=== PATIENT | female | born 1945 | race Caucasian/White ===

== ENCOUNTER 2016-07-22 10:56 | Emergency (ER) | payer MEDICARE ==
[~2016-07-22] VITALS: Ht 162.6 cm; Wt 48.5 kg
[~2016-07-22 10:56] MED LIST: CLON0.1T14 PO; CLON0.3T4 PO; DILT300C PO; HCT25T PO; LEVO750T6 PO; PHEN200T27 PO; POTA10CA43 PO; POTA20TA15 PO; TRAM-21 PO
--- OUTSIDE RECORDS SUMMARY | 2016-07-22 11:05 | XMS REPORT | Continuity of Care Document ---
Author Author [facility] Organization [facility] Address Unknown Phone Unavailable Care Team Providers Care Ed Case Manager Name Role Phone FLETCHER WATTS MD PCP Insurance Providers Payer Name Policy Number Subscriber Name Relationship [facility] [id number] Francisco Sosa 18 Self / Same As Patient Advance Directives Directive Response Recorded Date/Time Advance Directives No 10/11/14 10:10am Health Care Power of Shuffle Board Operator No 10/11/14 10:10am Organ Donor No 10/11/14 10:10am Problems No known problems or medical conditions. Medications Medication Dose Route Sig Days/Qty Instructions Order Date Discontinued Date Status Diltiazem HCl (Cardizem Cd) 1 Each PO DAILY 12/08/09 Active Potassium Chloride (Micro K) 1 Each PO DAILY WITH FOOD 12/08/09 Discontinued Hydrochlorothiazide 25 Mg PO DAILY 12/08/09 Active Clonidine HCl 0.1 Mg PO DAILY 12/08/09 10/09/14 Discontinued Phenazopyridine HCl 1 Each PO TID PRN 10 Qty 03/18/13 08/18/14 Discontinued Levofloxacin 1 Each PO DAILY 7 Qty 03/18/13 10/09/14 Discontinued Potassium Chloride 1 Each PO DAILY 10/09/14 Active Clonidine HCl 0.1 Mg PO DAILY 10/09/14 Active Tramadol Hcl 50 Mg PO EVERY 12 HOURS 20 Qty 10/11/14 Active Social History Social History Problem Response Recorded Date/Time Alcohol Use Denies Use 10/11/2014 10:10am Recreational Drug Use No 10/11/2014 10:10am Recent Foreign Travel No 08/17/2014 10:20am Sexually Transmitted Disease No 10/11/2014 10:10am HIV/AIDS No 10/11/2014 10:10am Smoking Status Current Everyday Smoker 08/17/2014 10:47am Do you dip or chew tobacco? No 10/11/2014 10:10am Query Response Start Date Stop Date Smoking Status Current Everyday Smoker Hospital Discharge Instructions No hospital discharge instructions. Plan of Care No plan of care. Functional Status No functional status results. Allergies, Adverse Reactions, Alerts Allergen Type Severity Reaction Status Last Updated No Known Drug Allergies Active 12/08/09 Immunizations No immunization records. Vital Signs Acute Vital Signs Vital Response Date/Time Height 5 ft 4 in Weight 114 lb Body Mass Index 19.6 kg/m^2 Results No known relevant diagnostic tests, laboratory data and/or discharge summary. Procedures No known history of procedures. Encounters Encounter Location Date/Time Registered Recurring Via [facility] 08/18/14 8:40am
[2016-07-22] MEDS ORDERED: morphine INJ 10 MG/ML 1ML (SYR OR VIAL) ONE (11:45)
--- NOTE | 2016-07-22 11:56 | ED Fall/Injury ---
General Chief Complaint: Upper Extremity Stated Complaint: LEFT ARM INJ Nursing Triage Note: PT AMBULATEDE TO ROOM 4. PT CO OF FALL AND L WRIST PAIN, PT HAS ABRASION TO L EYE LID, DENIES LOC. STATES SLID OFF WOOD CHAIR THAT HAD WAXED. DENIES HIP PAIN AT THIS X. ICE PACK APPLIED Source: patient Exam Limitations: no limitations (ROSA HERNANDEZ MD) History of Present Illness Time seen by provider: 11:43 Initial Comments Here with report of pain to the left wrist and left eyebrow. Patient slipped on a waxed chair in floor and hit the floor. Does have deformity to the left wrist as well as abrasion to the left brow. Denies loss of consciousness. Denies other injury. Occurred: this morning Severity: moderate Injuries/Pain Location: face, upper extremity Context: slipped Loss of Consciousness: no loss of consciousness Modifying Factors: Improves With Immobilization, Worse With Movement Associated Symptoms (Fall): No Chest Pain, No Confusion, No Nausea/Vomiting, No Shortness of Air (ROSA HERNANDEZ MD) Allergies and Home Medications Allergies Coded Allergies: No Known Drug Allergies (Unverified , 12/08/09) Home Medications Clonidine HCl 0.1 Mg Tablet 0.1 MG PO DAILY (Reported) Diltiazem Hcl 300 Mg Cap.sr.24h 1 EACH PO DAILY (Reported) Hydrochlorothiazide 25 Mg Tablet 25 MG PO DAILY (Reported) Hydrocodone/Acetaminophen 1 Each Tablet #12 1 EACH PO Q4H PRN PRN PAIN Prescribed by: GINNA JOHNSON on 07/22/16 1311 Potassium Chloride 20 Meq Tab.prt.sr 1 EACH PO DAILY (Reported) Constitutional: see HPINo chills, No fever Eyes: No Symptoms Reported Ears, Nose, Mouth, Throat: no symptoms reported Respiratory: No short of breath, No wheezing Cardiovascular: no symptoms reportedNo chest pain, No palpitations, No syncope Gastrointestinal: No abdominal pain, No nausea, No vomiting Genitourinary: no symptoms reported Musculoskeletal: see HPI joint pain joint swelling muscle pain Skin: change in color lesions Psychiatric/Neurological: No Symptoms Reported (ROSA HERNANDEZ MD) All Other Systems Reviewed Negative Unless Noted: Yes (ROSA HERNANDEZ MD) Past Eddcode-Ujbmxi-Qxlkyx Hx Patient Social History Alcohol Use: Denies Use Recreational Drug Use: No Smoking Status: Current Everyday Smoker Type Used: Cigarettes Recent Foreign Travel: No Contact w/Someone Who Travel: No Recent Infectious Disease Expo: No Recent Hopitalizations: No (ROSA HERNANDEZ MD) Surgeries HX Surgeries: Yes (CARPAL TUNNEL) Surgeries: Gallbladder, Hysterectomy, Orthopedic (ROSA HERNANDEZ MD) Respiratory Hx Respiratory Disorders: No (ROSA HERNANDEZ MD) Cardiovascular Hx Cardiac Disorders: Yes Cardiac Disorders: Hypertension (ROSA HERNANDEZ MD) Neurological Hx Neurological Disorders: No (ROSA HERNANDEZ MD) Reproductive System Hx Reproductive Disorders: No Sexually Transmitted Disease: No HIV/AIDS: No Female Reproductive Disorders: Denies REMEDY DEVELOPER History: Hysterectomy (ROSA HERNANDEZ MD) Genitourinary Hx Genitourinary Disorders: Yes Genitourinary Disorders: UTI-Chronic (ROSA HERNANDEZ MD) Gastrointestinal Hx Gastrointestinal Disorders: Yes Gastrointestinal Disorders: Chronic Constipation, Gall Bladder Disease (ROSA HERNANDEZ MD) Musculoskeletal Hx Musculoskeletal Disorders: Yes Musculoskeletal Disorders: Back Injury (ROSA HERNANDEZ MD) Endocrine Hx Endocrine Disorders: No (ROSA HERNANDEZ MD) HEENT HX ENT Disorders: Yes (GLASSES) (ROSA HERNANDEZ MD) Cancer Hx Cancer: No (ROSA HERNANDEZ MD) Psychosocial Hx Psychiatric Problems: No (ROSA HERNANDEZ MD) Integumentary HX Skin/Integumentary Disorder: No (ROSA HERNANDEZ MD) Blood Transfusions Hx Blood Disorders: No Adverse Reaction to a Blood Tr: No (ROSA HERNANDEZ MD) Reviewed Nursing Assessment Reviewed/Agree w Nursing PMH: Yes (ROSA HERNANDEZ MD) Reviewed/Agree w Nursing PMH: Yes (GINNA JOHNSON) Family Medical History Significant Family History: No Pertinent Family Hx (ROSA HERNANDEZ MD) Physical Exam Vital Signs Vital Sign - Last 12Hours 07/22/16 11:15 Temp 97.9 Pulse 90 Resp 18 B/P 202/101 Pulse Ox 98 (GINNA JOHNSON) Vital Signs Capillary Refill : Less Than 3 Seconds (ROSA HERNANDEZ MD) General Appearance: WD/WN no apparent distress HEENT: PERRL/EOMI pharynx normal Neck: full range of motion supple Cardiovascular: regular rate, rhythm no murmur Respiratory: lungs clear normal breath sounds Gastrointestinal: non tender soft Back: normal inspection no CVA tenderness no vertebral tenderness Extremities: other (deformity to the left wrist area with tenderness and swelling. Distal sensation and movement is intact.) Neurologic/Psychiatric: alert oriented x 3 Skin: normal color warm/dry (ROSA HERNANDEZ MD) Extremities: normal range of motion (except left wrist and hand) normal capillary refill other (deformity to the left wrist area with tenderness and swelling. Distal sensation and movement is intact.) Neurologic/Psychiatric: no motor/sensory deficits normal mood/affect (GINNA JOHNSON) Lagrange Coma Score Best Eye Response: (4) Open Spontaneously Best Verbal Response: (5) Oriented Best Motor Response: (6) Obeys Commands (ROSA HERNANDEZ MD) Best Eye Response: (4) Open Spontaneously Best Verbal Response: (5) Oriented Best Motor Response: (6) Obeys Commands Ad Total: 15 (GINNA JOHNSON) Splinting and Joint Reduction : Location: Left Wrist Pre-Proc Neuro Vasc Exam: normal Post-Proc Neuro Vasc Exam: normal Progress Patient tolerated short arm volar splint applied to left upper extremity. No complaints throughout procedure. Pre-Procedure NV Exam: Yes Selvin wrap: Yes Arm Sling: [place] Hand-Made Type: orthoglass Splint Application: Short Arm (GINNA JOHNSON) Progress/Results/Core Measures Results/Orders Medications Given in ED Current Medications Medications Dose Ordered Sig/Kishor Route Start Time Stop Time Status Last Admin Dose Admin Morphine Sulfate 5 mg ONCE ONCE IM 07/22/16 12:00 07/22/16 12:01 DC 07/22/16 11:40 5 MG (GINNA JOHNSON) Vital Signs/I&O Vital Sign - Last 12Hours 07/22/16 07/22/16 11:15 13:29 Temp 97.9 Pulse 90 94 Resp 18 18 B/P 202/101 Pulse Ox 98 96 (GINNA JOHNSON) Blood Pressure Mean: 134 Progress Note : Progress Note Seen and evaluated. Seen with Ginna Johnson APRN. Left wrist x-ray ordered and CT head ordered. Morphine 5 mg IM ordered. Monitor patient. (ROSA HERNANDEZ MD) Progress Note : Time: 11:45 Progress Note Initial evaluation completed, will reevaluate after diagnostic studies are completed. 1220 CT head and neck negative. Left wrist films show impacted minimally displaced distal radius fracture nondisplaced ulnar styloid fracture. 1255 discussed x-ray findings with Dr. Caldwell, he recommended splinting and he will see the patient at 9 AM tomorrow. 1315 splint applied to left wrist. Patient tolerated well and discharge plans made (GINNA JOHNSON) Diagnostic Imaging Diagonstic Imaging: CT Plain Films/CT/US/NM/MRI: c-spine, head Comments VIA [facility] [place] [place], [place] NAME: FRANCISCO SOSA [facility] REC#: [id number] PT STATUS: REG ER : 1945 PHYSICIAN: ROSA HERNANDEZ MD ADMIT DATE: 07/22/16/ER Draft Date of Exam:07/22/16 CT HEAD/CERVICAL SPINE WO PROCEDURE: CT head and CT cervical spine without contrast. TECHNIQUE: Multiple contiguous axial images were obtained through the brain and cervical spine without the use of intravenous contrast. Sagittal and coronal reformations through the cervical spine were then performed. INDICATION: Fall. FINDINGS: CT head: There is no intracranial hemorrhage, edema or mass effect. The brain parenchyma demonstrates periventricular and deep white hypodensities compatible with chronic microvascular ischemic changes. 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 No hydrocephalus. No extra-axial fluid collection is seen. The calvarium, the paranasal sinuses and orbits visualized portions appear grossly unremarkable. CT cervical spine: The alignment at the posterior spinal line is satisfactory. The vertebral body heights are preserved. There is mild disc height loss at C6-7 level and posterior osteophytes at this level. There is satisfactory alignment at the facet joints and at the lateral masses of C1 and C2 and atlantooccipital joints. There is no widening of the predental space. No fracture seen. The lung apices demonstrate partially seen consolidation or possibly pleural pulmonary fibrotic changes. IMPRESSION: 1. CT head: No intracranial hemorrhage. 2. CT cervical spine: Degenerative changes. No fracture seen. Dictated on workstation # [id number] Dict: 07/22/16 1204 Trans: 07/22/16 1217 KB [id number] Interpreted by: FRANCHESKA BARRIOS MD Electronically signed by: Diagonstic Imaging: Xray Plain Films/CT/US/NM/MRI: other (wrist) Comments VIA [facility] [place] [place] [place] NAME: FRANCISCO SOSA [facility] REC#: [id number] PT STATUS: REG ER : 1945 PHYSICIAN: ROSA HERNANDEZ MD ADMIT DATE: 07/22/16/ER Draft Date of Exam:07/22/16 WRIST, LEFT, 3 VIEWS OR MORE Three views of the left wrist. INDICATION: Fall. FINDINGS: There is an impacted angulated fracture of the distal radius with no definite extension into the articular surface. The distal fragment is angulated to a dorsal direction. There is also an oblique fracture along the base of the ulnar styloid process. There is no subluxation or dislocation at the wrist joint. Digital changes at the intercarpal joints particularly the scaphoid-trapezium joint seen. No radiopaque foreign body. IMPRESSION: Angulated impacted fracture of the distal radius. There is nondisplaced fracture of the ulnar styloid as well. Message about the fracture findings were left with the senior front end engineer for Dr. Hernandez. Dictated on workstation # [id number] Dict: 07/22/16 1213 Trans: 07/22/16 1224 KB [id number] Interpreted by: FRANCHESKA BARRIOS MD Electronically signed by: (ROSA HERNANDEZ MD) Diagonstic Imaging: Xray, CT Plain Films/CT/US/NM/MRI: c-spine, head, other (writst) (GINNA JOHNSON) Departure Impression Impression: Primary Impression: Fracture of wrist, closed Qualified Code: S62.101A - Fracture of unspecified carpal bone, right wrist, initial encounter for closed fracture Disposition: 01 HOME, SELF-CARE Condition: Stable Departure-Patient Inst. Decision time for Depature: 12:40 (GINNA JOHNSON) Referrals: FLETCHER WATTS MD (PCP/Family) Primary Care Physician Patient Instructions: Wrist Fracture (DC) Add. Discharge Instructions: All discharge instructions reviewed with patient and/or family. Voiced understanding. Follow up at 9:00 Ortho 4 , Dr. Paulette Medrano [phone] Keep splint on at all times, Ice and elevate wrist every 2 hours. Wiggle fingers , frequently. Sling as needed. Return to Emergency Dept for new problems or concerns. Scripts Hydrocodone/Acetaminophen (Hydrocodon -Acetaminophen 5-325)1 Each Tablet1 Each PO Q4H PRN PAIN #12 TAB Ref 0 Prov:GINNA JOHNSON 07/22/16 Copy Copies To 1: FLETCHER WATTS MD Copies To 2: CHELA CALDWELL MD, TIMOTHY D MD Jul 22, 2016 11:56 GINNA JOHNSON Jul 22, 2016 12:40
[2016-07-22] MEDS ORDERED: morphine INJ 5 MG/ML 1 ML VIAL IM ONE (12:00)
[2016-07-22] MEDS ORDERED: TETANUS,DIPTH,PERTUSS P/F (BOOSTRIX) 0.5 ML VIAL IM STA (12:04)
--- NOTE | 2016-07-22 12:18 | Diagnostic Imaging Report ---
PROCEDURE: CT head and CT cervical spine without contrast. TECHNIQUE: Multiple contiguous axial images were obtained through the brain and cervical spine without the use of intravenous contrast. Sagittal and coronal reformations through the cervical spine were then performed. INDICATION: Fall. FINDINGS: CT head: There is no intracranial hemorrhage, edema or mass effect. The brain parenchyma demonstrates periventricular and deep white hypodensities compatible with chronic microvascular ischemic changes. 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 No hydrocephalus. No extra-axial fluid collection is seen. The calvarium, the paranasal sinuses and orbits visualized portions appear grossly unremarkable. CT cervical spine: The alignment at the posterior spinal line is satisfactory. The vertebral body heights are preserved. There is mild disc height loss at C6-7 level and posterior osteophytes at this level. There is satisfactory alignment at the facet joints and at the lateral masses of C1 and C2 and atlantooccipital joints. There is no widening of the predental space. No fracture seen. The lung apices demonstrate partially seen consolidation or possibly pleural pulmonary fibrotic changes. IMPRESSION: 1. CT head: No intracranial hemorrhage. 2. CT cervical spine: Degenerative changes. No fracture seen. Dictated by: Dictated on workstation # [id number]
--- NOTE | 2016-07-22 12:24 | Diagnostic Imaging Report ---
Three views of the left wrist. INDICATION: Fall. FINDINGS: There is an impacted angulated fracture of the distal radius with no definite extension into the articular surface. The distal fragment is angulated to a dorsal direction. There is also an oblique fracture along the base of the ulnar styloid process. There is no subluxation or dislocation at the wrist joint. Digital changes at the intercarpal joints particularly the scaphoid-trapezium joint seen. No radiopaque foreign body. IMPRESSION: Angulated impacted fracture of the distal radius. There is nondisplaced fracture of the ulnar styloid as well. Message about the fracture findings were left with the front end developer designer for Dr. Ernst. Dictated by: Dictated on workstation # [id number]
[2016-07-22] MEDS ORDERED: HYDR-3812 PO (13:11)
[2016-07-22 13:29] VITALS: BP 176/91
[2016-07-26] MEDS ORDERED: HYDR-3812 PO (08:03)
== END 2016-07-22 13:29 | disposition home or self-care (01) ==
LOC: EDUNIT# 10:56 → ER 11:00
DX: S52.502A Unspecified fracture of the lower end of left radius, initial encounter for closed fracture (principal); S52.615A Nondisplaced fracture of left ulna styloid process, initial encounter for closed fracture; S00.212A Abrasion of left eyelid and periocular area, initial encounter; M47.812 Spondylosis without myelopathy or radiculopathy, cervical region; F17.210 Nicotine dependence, cigarettes, uncomplicated; Z79.899 Other long term (current) drug therapy; W07.XXXA Fall from chair, initial encounter; Y99.8 Other external cause status
CPT/HCPCS: 29125; 70450; 72125; 73110; 90471; 90715; 96372

== ENCOUNTER 2016-07-23 12:12 | Outpatient (CLI) | payer MEDICARE ==
[~2016-07-23] VITALS: Ht 162.6 cm; Wt 48.5 kg
[~2016-07-23 12:12] MED LIST changes: +HYDR-3812 PO
--- OUTSIDE RECORDS SUMMARY | 2016-07-23 12:16 | XMS REPORT | Continuity of Care Document ---
Author Author [facility] Organization [facility] Address Unknown Phone Unavailable Care Team Providers Care Dietitian Assistant Name Role Phone FLETCHER WATTS MD PCP Insurance Providers Payer Name Policy Number Subscriber Name Relationship [facility] [id number] Francisco Sosa 18 Self / Same As Patient Advance Directives Directive Response Recorded Date/Time Advance Directives No 10/11/14 10:10am Health Care Power of Customer Contact Representative No 10/11/14 10:10am Organ Donor No 10/11/14 [...] Encounters Encounter Location Date/Time Registered Recurring [facility] 08/18/14 8:40am
[2016-07-26] MEDS ORDERED: HYDR-3812 PO (08:03)
== END 2016-07-23 13:37 ==
LOC: PREOP 12:12
PROVIDERS: ATTEND Orthopaedic Surgery Orthopaedic Surgery of the Spine
DX: Z01.818 Encounter for other preprocedural examination (principal); S52.502A Unspecified fracture of the lower end of left radius, initial encounter for closed fracture; S52.615A Nondisplaced fracture of left ulna styloid process, initial encounter for closed fracture; W07.XXXA Fall from chair, initial encounter; Y99.8 Other external cause status

== ENCOUNTER 2016-07-26 05:51 | Day surgery (SDC) | payer MEDICARE ==
[~2016-07-26] VITALS: Ht 162.6 cm; Wt 48.5 kg
--- OUTSIDE RECORDS SUMMARY | 2016-07-26 05:54 | XMS REPORT | Continuity of Care Document ---
Author Author [facility] Organization [facility] [address] [facility] Address Unknown Phone Unavailable Care Team Providers Care Supervisor Refining Name Role Phone FLETCHER WATTS MD PCP Insurance Providers Payer Name Policy Number Subscriber Name Relationship [employer] [id number] Sheila,Francisco F 18 Self / Same As Patient Blue Cross [facility] Supp [id number] Francisco Astorga F 17 Self / Same As Patient Advance Directives Directive Response Recorded Date/Time Advance Directives No 07/23/16 1:26pm Health Care Power of Wood Machinist Apprentice No 07/23/16 1:26pm Organ Donor No 07/23/16 1:26pm Resuscitation Status Full Code 07/23/16 1:26pm Problems Active Problems Medical Problem Onset Date Status Fracture of wrist, closed Unknown Acute Medications Current Home Medications Medication Dose Units Route Directions Days/Qty Instructions Start Date Diltiazem Hcl (Cardizem Cd) 300 Mg 1 Each Oral Daily 12/08/09 Hydrochlorothiazide 25 Mg 25 Mg Oral Daily 12/08/09 Potassium Chloride 20 Meq 1 Each Oral Daily 10/09/14 Clonidine Hcl 0.1 Mg 0.1 Mg Oral Daily 10/09/14 Hydrocodone/Acetaminophen 1 Each 1 Each Oral Every 4HRS as needed for Pain 12 07/22/16 Past Home Medications Medication Directions Ordered Status Potassium Chloride (Micro K) 10 Meq Capsule.sa, 1 Each Oral Daily With Food 12/08/09 Discontinued Clonidine Hcl 0.3 Mg Tablet, 0.1 Mg Oral Daily 12/08/09 Discontinued Phenazopyridine Hcl 200 Mg Tablet, 1 Each Oral Three Times A Day And Prn 11/23 Discontinued Levofloxacin 750 Mg Tablet, 1 Each Oral Daily 03/18/13 Discontinued Tramadol Hcl 50 Mg Tablet, 50 Mg Oral Every 12 Hours 10/11/14 Discontinued Social History Social History Problem Response Recorded Date/Time Alcohol Use Denies Use 10/11/2014 10:10am Recreational Drug Use No 10/11/2014 10:10am Recent Foreign Travel No 07/23/2016 1:26pm Recent Infectious Disease Exposure No 07/23/2016 1:26pm Sexually Transmitted Disease No 07/23/2016 1:26pm HIV/AIDS No 07/23/2016 1:26pm Smoking Status Current Everyday Smoker 07/23/2016 1:26pm Do you dip or chew tobacco? No 10/11/2014 10:10am Type Used Cigarettes 07/23/2016 1:26pm Recent Hopitalizations No 07/23/2016 1:26pm Sexually Transmitted Disease No 07/23/2016 1:26pm Hx Sexually Transmitted Disorders No 12/11/2009 6:05am Query Response Start Date Stop Date Smoking Status Current Everyday Smoker Hospital Discharge Instructions No hospital discharge instructions. Plan of Care Discharge Date 07/23/16 1:37pm Prescriptions See Medication Section Functional Status No functional status results. Allergies, Adverse Reactions, Alerts No known allergies. Immunizations Name Given Type DTaP-Tetanus, Dipth, Pertuss P/F (Boostrix) 07/22/16 Administered Vital Signs Acute Vital Signs Vital Response Date/Time Temperature (Fahrenheit) 97.9 degrees F (97.6 - 99.5) 07/22/2016 11:15am Temperature (Calculated Celsius) 36.85799 degrees C (36.4 - 37.5) 07/22/2016 11:15am Pulse Rate (adult) 94 bpm (60 - 90) 07/22/2016 1:29pm Respiratory Rate 18 bpm (12 - 24) 07/22/2016 1:29pm O2 Sat by Pulse Oximetry 96 % (88 - 100) 07/22/2016 1:29pm Blood Pressure 176/91 mm Hg 07/22/2016 1:29pm Blood Pressure Mean 134 mm Hg 07/22/2016 11:15am Pain Numeric Pain Scale 10-Worst Possible Pain 07/22/2016 11:40am Height (Feet) 5 feet 07/23/2016 1:25pm Height (Inches) 4.00 inches 07/23/2016 1:25pm Height (Calculated Centimeters) 162.767990 cm 07/23/2016 1:25pm Weight (Pounds) 107 pounds 07/23/2016 1:25pm Weight (Ounces) 0.0 oz 07/23/2016 1:25pm Weight (Calculated Grams) 68167.38 gm 07/23/2016 1:25pm Weight (Calculated Kilograms) 48.339028 kilograms 07/23/2016 1:25pm Calculated BMI 18.4 07/23/2016 1:25pm Capillary Refill Capillary Refill Less Than 3 Seconds 07/22/2016 11:15am Results No known relevant diagnostic tests, laboratory data and/or discharge summary. Procedures No known history of procedures. Encounters Encounter Location Arrival/Admit Date Discharge/Depart Date Attending Provider Departed Clinic [facility] 07/23/16 12:12pm 07/23/16 1: 37pm CHELA GAXIOLA MD Departed Emergency Room [facility] [address] 07/22/16 11:00am 02/27 1:29pm GINNA JOHNSON
--- OUTSIDE RECORDS SUMMARY | 2016-07-26 05:55 | XMS REPORT | Continuity of Care Document ---
Author Author [facility] Organization [facility] Address Unknown Phone Unavailable Care Team Providers Care Time Study Analyst Name Role Phone FLETCHER WATTS MD PCP Insurance Providers Payer Name Policy Number Subscriber Name Relationship [employer] [id number] Sheila,Francisco F 17 Self / Same As Patient Blue Cross [facility] Supp [id number] Francisco Astorga F 17 Self / Same As Patient Advance Directives Directive Response Recorded Date/Time Advance Directives No 07/23/16 1:26pm Health Care Power of Soaping Machine Back Tender No 07/23/16 1:26pm Organ Donor No 07/23/16 [...] - 99.5) 07/22/2016 11:15am Temperature (Calculated Celsius) 36.01578 degrees C (36.4 - 37.5) 07/22/2016 11:15am [...] 4.00 inches 07/23/2016 1:25pm Height (Calculated Centimeters) 162.603013 cm 07/23/2016 1:25pm Weight (Pounds) 107 pounds 07/23/2016 1:25pm Weight (Ounces) 0.0 oz 07/23/2016 1:25pm Weight (Calculated Grams) 99449.38 gm 07/23/2016 1:25pm Weight (Calculated Kilograms) 48.282559 kilograms 07/23/2016 1:25pm Calculated BMI 18.4 07/23/2016 1:25pm Capillary Refill Capillary Refill Less Than 3 Seconds 07/22/2016 11:15am Results No known relevant diagnostic tests, laboratory data and/or discharge summary. Procedures No known history of procedures. Encounters Encounter Location Arrival/Admit Date Discharge/Depart Date Attending Provider Departed Clinic [facility] 07/23/16 12:12pm 07/23/16 1: 37pm CHELA GAXIOLA MD Departed Emergency Room [facility] 07/22/16 11:00am 02/27 1:29pm GINNA JOHNSON
[2016-07-26 06:20] VITALS: BP 135/67
[2016-07-26] MEDS ORDERED: ceFAZolin 2 GM/50 ML NS 50 ML IV ONE (06:27)
[2016-07-26] MEDS: LACTATED RINGERS 1,000 ML IV PRN ×2 (06:44→07:40)
[2016-07-26] MEDS ORDERED: fentaNYL INJECTION 100 MCG/2 ML AMP ONE (06:46)
[2016-07-26] MEDS ORDERED: ONDANSETRON 4 MG/2 ML (SDV) Z0FRAN ONE (06:48)
[2016-07-26] MEDS ORDERED: DEXAMETHASONE PF 10 MG/ML (DECADRON) VIAL ONE (06:48)
[2016-07-26] MEDS ORDERED: LIDOCAINE PF 2% 10 ML (XYLOCAINE) AMP ONE (06:48)
[2016-07-26] MEDS ORDERED: proPOfol 200 MG/20 ML (DIPRIVAN) VIAL IV ONE (06:48)
[2016-07-26] MEDS ORDERED: SEVOFLURANE (ULTANE) 15 ML INHAL SOLN ONE ×5 (06:48→08:14)
[2016-07-26] MEDS ORDERED: BUP/EPI 0.25% 1:200,000 (MARCAINE) 30 ML VIAL ONE (06:50)
[2016-07-26] MEDS ORDERED: ceFAZolin 2 GM/NS 50 ML IV ONE (07:15)
[2016-07-26] MEDS ORDERED: LACTATED RINGERS 1,000 ML IV ONE (07:55)
--- NOTE | 2016-07-26 08:00 | Progress Note-Post Operative ---
Post-Operative Progess Note Shipping Room Supervisor Khanh Emmanuel, VITA Pre-Operative Diagnosis FRACTURED LEFT RADIUS Post-Operative Diagnosis Closed, Distal Radius Fracture Post-Op Procedure Note Date of Procedure: Jul 26, 2016 Name of Procedure: ORIF Left Distal Radius Procedure Note/Findings Fracture Anesthesia Type GETA Estimated blood loss (mL): CHELA Aguiar MD Jul 26, 2016 8:00 am
[2016-07-26] MEDS ORDERED: HYDR-3812 PO (08:03)
[2016-07-26] MEDS ORDERED: fentaNYL INJECTION 100 MCG/2 ML AMP IV PRN (09:00)
[2016-07-26] MEDS ORDERED: ONDANSETRON 4 MG/2 ML (SDV) Z0FRAN IV ONE (09:00)
[2016-07-26] MEDS ORDERED: morphine INJ 10 MG/ML 1ML (SYR OR VIAL) IV PRN (09:00)
--- NOTE | 2016-07-26 09:14 | OPERATIVE REPORT ---
PROCEDURE PHYSICIAN: CHELA CALDWELL DATE OF PROCEDURE: 07/26/2016 PREOPERATIVE DIAGNOSIS: Left closed distal radius fracture. POSTOPERATIVE DIAGNOSIS: Left closed distal radius fracture. PROCEDURE PERFORMED: Open reduction internal fixation of left distal radius fracture with a single extra-articular piece. SURGEON: Dr. Caldwell. SPEED WINDER: SID Jose. ROLE OF AIR SURVEILLANCE OPERATOR: Aid in retraction of the procedure, aid in implantation instrumentation administration, and wound closure. ANESTHESIA: General endotracheal. ESTIMATED BLOOD LOSS: Minimal. IV FLUIDS: Please see anesthesia record. ANTIBIOTICS: Ancef. TOURNIQUET TIME: Please see anesthesia record. IMPLANTS USED: Synthes locking volar distal radius plate. INDICATION FOR PROCEDURE: Liyah is a 70-year-old female who fell and broke her left wrist last week, denies other injuries. The risks, benefits, and alternatives to various treatments were discussed. She elected to proceed with operative intervention. DESCRIPTION OF PROCEDURE: The patient was taken to the preoperative holding area and brought back to the operative suite. After adequate induction of general anesthesia and preoperative antibiotics, she was placed supine on the OR table. Sterile prep and drape of the left distal radius, arm was elevated, tourniquet was raised. Images of the wrist where a FCR. FCR approach to the wrist was carried out without difficulty. Once distal radius was exposed, reduction was performed. Temporary percutaneous pin fixation of the radius was achieved and then a 3 hole locking volar distal radius plate was affixed to the spine temporarily with a sliding shaft screw. It was placed and the appropriate position. Locking screws distally were placed to hold the distal fragment in place and then the remaining shaft screws were filled. Final position was assured, it was stable with motion under fluoro and noted be quite satisfactory. Wound was closed in layers, split was applied and patient was transferred to recovery room in stable condition having tolerated the procedure well. Job ID: [id number] Dictated Date: 07/26/2016 08:02:06 Platen Press Operator Date: 07/26/2016 08:56:52 / lisa
[2016-07-26 09:15] VITALS: BP 134/74
[2016-07-26] MEDS ORDERED: HYDROcodone/APAP 5 MG/325 MG (LORTAB) TAB PO ONE (09:30)
[2016-07-26 09:45] VITALS: BP 141/65
--- NOTE | 2016-07-26 12:00 | Diagnostic Imaging Report ---
INDICATION: Distal radial fracture. FINDINGS: Multiple views were obtained with a portable intensifier in surgery during ORIF of distal radial fracture. Plate and screws are in place with good alignment of distal radial fracture. IMPRESSION: Anatomic alignment of left distal radial fracture with plate and screws in place. 19 seconds of fluoroscopy time was used in surgery. Dictated by: Dictated on workstation # [id number]
== END 2016-07-26 10:25 | disposition home or self-care (01) ==
LOC: SDC 05:51
PROVIDERS: ATTEND Orthopaedic Surgery Orthopaedic Surgery of the Spine
DX: S52.502A Unspecified fracture of the lower end of left radius, initial encounter for closed fracture (principal); W07.XXXA Fall from chair, initial encounter; Y99.8 Other external cause status; Z11.2 Encounter for screening for other bacterial diseases
CPT/HCPCS: 87081

== ENCOUNTER 2016-09-30 12:56 | Outpatient (RCR) | payer MEDICARE | END 2016-10-06 16:45 | disposition home or self-care (01) | PROVIDERS: ATTEND Physician Assistant | DX: S52.502D Unspecified fracture of the lower end of left radius, subsequent encounter for closed fracture with routine healing (principal) ==

== ENCOUNTER → 2016-11-09 | Outpatient (CLI) | payer MEDICARE ==
--- NOTE | 2016-11-10 13:12 | Diagnostic Imaging Report ---
EXAMINATION: PET-CT TECHNIQUE: Serum glucose level at the time of the study is: 119 mg/dL. 12.6 mCi of FDG was administered intravenously followed by obtaining PET images with corresponding noncontrast CT scan images. The CT scan was performed for anatomic correlation and attenuation correction and was not performed according to the diagnostic protocol of the areas covered. The scan was performed from the head to mid thighs. INDICATION: Lung mass. FINDINGS: There is a highly metabolic mass measuring 7.3 x 6.2 cm in the right lower lobe with adjacent non-hypermetabolic consolidation or atelectasis and suggestion of a small right pleural effusion. Maximum SUV is 12. There is no significantly hypermetabolic hilar or mediastinal lymph nodes. The upper margin of the right lower lobe mass however extends to the right infrahilar region. There is a precarinal lymph node with mild enlargement measuring 1.2 cm that demonstrates no significant increased FDG uptake, possibly benign. In the abdomen, there are markedly hypermetabolic liver masses with the largest mass demonstrating central necrosis and peripheral hypermetabolism with maximum SUV of 8.5. This mass is 11.6 x 10.4 cm in size. Other hypermetabolic nodules in the liver including a 3.5 cm inferior right hepatic lobe and a 1.4 cm left hepatic lobe nodules are seen. The rest of the abdomen and pelvis demonstrate expected excretion of the urinary tract with no discrete hypermetabolic mass identified. Mild hypermetabolism is seen about the left shoulder probably arthritic related. No suspicious hypermetabolism is seen in the head or neck. IMPRESSION: Large hypermetabolic masses in the right lower lobe and in the liver, may relate to metastatic lung or liver primary cancer. Dictated by: Dictated on workstation # [id number]
== END ==
LOC: RAD 09:35
PROVIDERS: ATTEND Internal Medicine Critical Care Medicine
DX: R91.8 Other nonspecific abnormal finding of lung field (principal); K76.9 Liver disease, unspecified